=== PATIENT | male | born 1990 | race Caucasian/White ===

== ENCOUNTER 2018-10-23 15:36 | Emergency (ER) | payer OTHER ==
[~2018-10-23] VITALS: Ht 180.3 cm; Wt 129.7 kg
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
[2018-10-23 17:18] VITALS: BP 148/82
== END 2018-10-23 17:20 | disposition home or self-care (01) ==
LOC: ER 15:39 → ER FS 17:20
DX: S60.221A Contusion of right hand, initial encounter (principal); V43.52XA Car driver injured in collision with other type car in traffic accident, initial encounter
CPT/HCPCS: 73120